=== PATIENT | female | born 1970 | race Caucasian/White ===

== ENCOUNTER 2021-03-26 18:41 | Emergency (ER) | payer OTHER ==
[~2021-03-26 18:41] MED LIST: ALDACTONE25 MG PO; ARMOUR THYROID15 MG PO; ARMOUR THYROID30 MG PO; BENTYL 20MG TAB20 MG PO; BREO ELLIPTA 11 EACH INH; CENTRUM SILVER1 EACH PO; DESMOPRESSIN A0.2 MG PO; DITROPAN 5 MG TA5 MG PO; DITROPAN XL 5 MG5 MG PO; ELAVIL 25 MG TA25 MG PO; FLAGYL500 MG PO; GORDO-VITE A2400 GM PO; IBUPROFEN600 MG PO; INCRUSE ELLI62.5 MCG INH; KLONOPIN TAB 00.5 MG PO; LEXAPRO10 MG PO; MACROBID 100 M100 MG PO; MAGNESIUM250 MG PO; NEURONTIN100 MG PO; NORCO 5-325 TA1 EACH PO; OMEPRAZOLE20 MG PO; PHENERGAN 25 MG25 M1 PO; PRIMATENE MIS11.7 GM IH; PROPRANOLOL HCL10 MG PO; RIZATRIPTAN10 MG PO; SELENIUM200 MC2 PO; TOPAMAX25 MG PO; VENTOLIN HFA 66.7 GM INH; VITAMIN D250000 UNIT PO; ZINC CHELATED50 MG PO; ZOFRAN ODT 4 MG4 MG PO; ZOFRAN4 MG PO
[2021-03-26] MEDS ORDERED: TESSALON PERLE100 MG PO (22:01)
== END 2021-03-26 22:30 | disposition home or self-care (01) ==
LOC: ER1 18:41
DX: U07.1 COVID-19 (principal); Z23 Encounter for immunization; I10 Essential (primary) hypertension; Z90.710 Acquired absence of both cervix and uterus; Z88.2 Allergy status to sulfonamides; Z88.8 Allergy status to other drugs, medicaments and biological substances
CPT/HCPCS: 99284; M0243

== ENCOUNTER → 2021-04-15 | Outpatient (CLI) | payer OTHER ==
[~2021-04-15] MED LIST changes: +TESSALON PERLE100 MG PO
== END ==
LOC: RAD 14:17
DX: J20.9 Acute bronchitis, unspecified (principal)
CPT/HCPCS: 71046

== ENCOUNTER → 2021-07-16 | Outpatient (CLI) | payer OTHER | LOC: KOH-I 08:00 | DX: R41.3 Other amnesia (principal); I65.23 Occlusion and stenosis of bilateral carotid arteries | CPT/HCPCS: 70551; 93880 ==